=== PATIENT | female | born 1995 | race Two or more races ===

== ENCOUNTER 2016-08-08 15:37 | Emergency (ER) | payer OTHER ==
[2016-08-08 15:42] VITALS: BP 144/80
--- NOTE | 2016-08-08 16:04 | ER Document Report ---
ED Medical Screen (RME) - General Stated Complaint: TAMPON STUCK INSIDE Mode of Arrival: Ambulatory Information source: Patient Notes: Patient complains of a retained tampon the specialist for a day. Patient denies any complaints from I have greeted and performed a rapid initial assessment of this patient. A comprehensive ED assessment and evaluation of the patient, analysis of test results and completion of the medical decision making process will be conducted by additional ED providers. Physical Exam - Vital signs Vitals: Temp Pulse Resp BP Pulse Ox 98.0 F 93 16 144/80 H 99 08/08/16 15:41 08/08/16 15:41 08/08/16 15:41 08/08/16 15:41 08/08/16 15:41 - General General appearance: Appears well, Alert In distress: None Course - Vital Signs Vital signs: Temp Pulse Resp BP Pulse Ox 98.0 F 93 16 144/80 H 99 08/08/16 15:41 08/08/16 15:41 08/08/16 15:41 08/08/16 15:41 08/08/16 15:41
--- NOTE | 2016-08-08 19:35 | ER Document Report ---
ED GI/ - General Chief Complaint: Foreign Body in Vagina Stated Complaint: TAMPON STUCK INSIDE Mode of Arrival: Ambulatory Notes: Patient feels she has a retained tampon in her vagina. Says she put it in or Tuesday. Has noticed some smell, but no significant actual discharge. No fevers. No abdominal or pelvic pain or cramping. TRAVEL OUTSIDE OF THE [place] IN LAST 30 DAYS: No - Related Data Allergies/Adverse Reactions: Penicillins Allergy (Verified 08/08/16 16:04) Past Medical History - General Information source: Patient - Social History Smoking Status: Current Every Day Smoker Chew tobacco use (# tins/day): Yes Frequency of alcohol use: Social Drug Abuse: None Family History: Reviewed & Not Pertinent Patient has suicidal ideation: No Patient has homicidal ideation: No - Medical History Medical History: Negative Review of Systems - Review of Systems Notes: REVIEW OF SYSTEMS: CONSTITUTIONAL : Denies fever. GASTROINTESTINAL: Denies abdominal pain or nausea, vomiting, or diarrhea. GENITOURINARY: Denies difficulty or painful urinating, urinary frequency, blood in urine. ALL OTHER SYSTEMS REVIEWED AND NEGATIVE. Physical Exam - Vital signs Vitals: Temp Pulse Resp BP Pulse Ox 98.0 F 93 16 144/80 H 99 08/08/16 15:41 08/08/16 15:41 08/08/16 15:41 08/08/16 15:41 08/08/16 15:41 Interpretation: Normal - Notes Notes: PHYSICAL EXAMINATION: GENERAL: Well-appearing, in no acute distress. Vital signs are all normal. Afebrile. LUNGS: Breath sounds clear and equal bilaterally. HEART: Regular rate and rhythm without murmurs. ABDOMEN: Soft, nontender. No guarding or rebound. Pelvic exam performed with speculum and ring forceps. Examination reveals a retained tampon in the left posterior vaginal pocket BACK: No tenderness throughout entire back. - Genitourinary External exam: Normal Speculum exam: Cervix closed, Other - Dark, gifford colored apparent tampon in the left posterior vagina. Able to grasp it with a ring forceps and remove it intact along with the speculum at the same time. Residual vaginal mucosal wall appears fine without any evidence of irritation or injury or infection.. No: Lesions, Products of conception, Vaginal lacerations Vaginal bleeding: None Course - Vital Signs Vital signs: Temp Pulse Resp BP Pulse Ox 98.0 F 93 16 144/80 H 99 08/08/16 15:41 08/08/16 15:41 08/08/16 15:41 08/08/16 15:41 08/08/16 15:41 Discharge - Discharge Clinical Impression: Retained foreign body of vagina Qualifiers: Encounter type: initial encounter Qualified Code(s): T19.2XXA - Foreign body in vulva and vagina, initial encounter Condition: Stable Disposition: HOME, SELF-CARE Additional Instructions: Removal of vaginal retained tampon. The tampon appears to have been removed intact. There is no evidence of any significant irritation or other injury to the vaginal mucosa internally. You're advised to return to your normal activities. No specific additional means of cleansing other than bathing is necessary. Return if you develop pelvic or abdominal pain, vaginal discharge or other new symptoms. Forms: Return to Work
== END 2016-08-08 19:44 | disposition home or self-care (01) ==
LOC: ER 15:37
DX: T19.2XXA Foreign body in vulva and vagina, initial encounter (principal); X58.XXXA Exposure to other specified factors, initial encounter; F17.210 Nicotine dependence, cigarettes, uncomplicated; Z88.0 Allergy status to penicillin
CPT/HCPCS: 99283